=== PATIENT | female | born 1995 | race Caucasian/White ===

== ENCOUNTER 2021-11-22 09:49 | Outpatient (CLI) | payer OTHER | END 2021-11-22 09:50 | disposition home or self-care (01) | LOC: LAB.N 09:49 | PROVIDERS: ATTEND Nurse Practitioner Obstetrics & Gynecology | DX: O20.0 Threatened abortion (principal) | CPT/HCPCS: 36415; 84702 ==

== ENCOUNTER 2021-11-24 07:08 | Outpatient (CLI) | payer OTHER | END 2021-11-24 07:09 | disposition home or self-care (01) | LOC: LAB.N 07:08 | PROVIDERS: ATTEND Nurse Practitioner Obstetrics & Gynecology | DX: O20.0 Threatened abortion (principal) | CPT/HCPCS: 36415; 84702 ==

== ENCOUNTER 2022-03-16 13:00 | Outpatient (CLI) | payer OTHER | END 2022-03-16 13:01 | disposition home or self-care (01) | LOC: LAB 13:00 | PROVIDERS: ATTEND Nurse Practitioner Obstetrics & Gynecology | DX: Z32.01 Encounter for pregnancy test, result positive (principal) | CPT/HCPCS: 36415; 84702 ==

== ENCOUNTER 2022-03-18 15:46 | Outpatient (CLI) | payer OTHER | END 2022-03-18 15:47 | disposition home or self-care (01) | LOC: LAB 15:46 | PROVIDERS: ATTEND Nurse Practitioner Obstetrics & Gynecology | DX: Z32.01 Encounter for pregnancy test, result positive (principal) | CPT/HCPCS: 36415; 84702 ==

== ENCOUNTER 2022-04-23 09:27 | Outpatient (CLI) | payer OTHER ==
[2022-04-23 09:43] LABS: BASOPHILS % (AUTO) 0.6 %; EOSINOPHILS % (AUTO) 0.8 %; HCT - HEMATOCRIT 40.6 % (37.0-47.0); HGB - HEMOGLOBIN 13.8 g/dL (12.0-16.0); LYMPHOCYTES # (AUTO) 1.3 10^3/uL (1.5-3.5); LYMPHOCYTES % (AUTO) 24.9 %; MEAN CORPUSCULAR HEMOGLOBIN 29.3 pg (27.0-31.0); MEAN CORPUSCULAR VOLUME 86.2 fL (81.0-99.0); MEAN PLATELET VOLUME 9.4 fL (7.9-10.8); MONOCYTES # (AUTO) 0.6 10^3/uL (0.0-1.0); MONOCYTES % (AUTO) 11.2 %; NEUTROPHILS # (AUTO) 3.2 10^3/uL (1.5-6.6); NEUTROPHILS % (AUTO) 62.3 %; PLT - PLATELET COUNT 252 10^3/uL (130-450); RED BLOOD COUNT 4.71 10^6/uL (4.20-5.40); RED CELL DISTRIBUTION WIDTH 13.2 % (12.0-15.0); WHITE BLOOD COUNT 5.1 x10^3/uL (4.8-10.8)
[2022-04-24 05:11] LABS: HBsAG SCREEN Negative (Negative)
[2022-04-24 07:10] LABS: RPR Non Reactive (Non Reactive)
[2022-04-24 08:09] LABS: HCV AB Non Reactive (Non Reactive); HIV SCREEN 4TH GENERATION Non Reactive (Non Reactive); VARICELLA-ZOSTER AB IGG 2561 index (Immune >165)
== END 2022-04-23 09:28 | disposition home or self-care (01) ==
LOC: LAB 09:27
PROVIDERS: ATTEND Nurse Practitioner Obstetrics & Gynecology
DX: Z36.89 Encounter for other specified antenatal screening (principal)
CPT/HCPCS: 36415; 85025; 86592; 86762; 86787; 86803; 86850; 86900; 86901; 87340; 87389

== ENCOUNTER 2022-07-02 06:49 | Outpatient (CLI) | payer OTHER ==
--- NOTE | 2022-07-02 11:39 | Ultrasound Report ---
PROCEDURE: OB Detailed Eval INDICATIONS: SUPERVISION OF OUTSIDE/PRIOR DATING DATA: Last menstrual period (LMP): 02/14/2022. LMP-based estimated date of delivery (HERMAN): 11/21/2022. First dating scan (date and location): 04/17/2022. Estimated date of delivery (HERMAN) from first dating scan: 11/21/2022. TECHNIQUE: Real-time scanning was performed of the fetus, with image documentation and biometric measurements. Endovaginal scanning: Not performed COMPARISON: None. FINDINGS: General: A single living intrauterine gestation is present. Presentation: Breech Placenta: Placental position is posterior, without previa. Amniotic fluid index: 12.0 cm, 25th percentile for gestational age. heart rate: 135 beats per minute. Maternal cervical canal: 3.7 cm long; normal length is 2.5 cm or more. biometrics: Biparietal diameter: 4.28 cm, 19 weeks and 0 days Head circumference: 16.91 cm, 19 weeks and 4 days Abdominal circumference: 14.6 cm, 19 weeks and 6 days Femur length: 3.2 cm, 20 weeks and 0 days Estimated gestational age from initial scan: 19 weeks and 5 days. Composite gestational age from present scan: 19 weeks and 1 day Estimated weight and percentile: 317 g which correlates with the 54th percentile for gestation al age. Measurement variability in biometric dating: +/- 10 days from 12-20 weeks gestation, +/- 2 weeks from 20-30 weeks gestation, +/- 3 weeks at 30 weeks gestation or later. Anatomic survey: Neuro: Ventricles are normal at less than 10 mm. Cisterna magna is normal at 3-11 mm. Cerebellum i s normal in size and morphology. Nuchal skin fold: Normal at less than 6 mm between 14 and 20 weeks gestational age. Face: Nose and lips, facial profile are normal. Spine: No evidence for spina bifida. Heart: 4-chambered heart is present, with normal ventricular outflow tracts. Diaphragm: Diaphragm is intact. Stomach: Left-sided stomach is present. Kidneys: No hydronephrosis. Normal is less than 5 mm in 2nd trimester, less than 7 mm in 3rd trimester. Cord: 3 vessel cord has orthotopic insertion. Bladder: Normal in size. Extremities: All 4 extremities are visualized. IMPRESSION: Single living intrauterine gestation with estimated sonographic gestational age of approximately 19 w eeks and 1 day. Normal interval growth has occurred. Estimated weight of approximately 317 g which correlates with the 54th percentile for gestation al age. Otherwise, unremarkable routine second trimester anatomy screening survey. Reviewed by: Osbaldo Martinez MD on 07/02/2022 11:38 AM PDT Approved by: Osbaldo Martinez MD on 07/02/2022 11:38 AM PDT Station ID: [id number]
== END 2022-07-02 06:50 | disposition home or self-care (01) ==
LOC: DI 06:49
PROVIDERS: ATTEND Nurse Practitioner Obstetrics & Gynecology
DX: Z34.02 Encounter for supervision of normal first pregnancy, second trimester (principal); Z36.89 Encounter for other specified antenatal screening

== ENCOUNTER 2022-08-19 08:13 | Outpatient (CLI) | payer OTHER ==
[2022-08-19 09:26] LABS: HCT - HEMATOCRIT 35.9 % (37.0-47.0); HGB - HEMOGLOBIN 12.2 g/dL (12.0-16.0); MEAN CORPUSCULAR HEMOGLOBIN 29.8 pg (27.0-31.0); MEAN CORPUSCULAR VOLUME 87.6 fL (81.0-99.0); MEAN PLATELET VOLUME 9.7 fL (7.9-10.8); RED BLOOD COUNT 4.1 10^6/uL (4.20-5.40); RED CELL DISTRIBUTION WIDTH 12.7 % (12.0-15.0); WHITE BLOOD COUNT 8.6 x10^3/uL (4.8-10.8)
== END 2022-08-19 08:14 | disposition home or self-care (01) ==
LOC: LAB 08:13
PROVIDERS: ATTEND Nurse Practitioner Obstetrics & Gynecology
DX: Z36.9 Encounter for antenatal screening, unspecified (principal)
CPT/HCPCS: 36415; 82950; 85027

== ENCOUNTER 2022-09-25 19:17 | Outpatient (CLI) | payer OTHER ==
--- NOTE | 2022-09-26 01:03 | Ultrasound Report ---
PROCEDURE: OB F/U or Repeat INDICATIONS: IUGR OUTSIDE/PRIOR DATING DATA: Last menstrual period (LMP): 02/14/2022. LMP-based estimated date of delivery (HERMAN): 11/21/2022. First dating scan (date and location): 04/17/2022. Estimated date of delivery (HERMAN) from first dating scan: 11/21/2022. TECHNIQUE: Real-time scanning was performed of the fetus, with image documentation and biometric measurements. COMPARISON: 07/02/2022 FINDINGS: General: A single live intrauterine gestation is present. Presentation: Vertex Placenta: Placental position is posterior, without previa. Amniotic fluid index: 15.7 cm, within normal limits for gestational age. heart rate: 145 beats per minute. Maternal cervical canal: 4.4 cm long; normal length is 2.5 cm or more. biometrics: Biparietal diameter: 8.2 cm equals 33 weeks 0 days Head circumference: 31.3 cm equals 35 weeks 1 day Abdominal circumference: 27.6 cm equals 31 weeks 5 days Femur length: 6.2 cm equals 32 weeks 1 day Estimated gestational age from initial scan: 31 weeks 6 days Composite gestational age from present scan: 33 weeks 0 days Estimated weight and percentile: 1933 g, 52nd percentile Measurement variability in biometric dating: +/- 10 days from 12-20 weeks gestation, +/- 2 weeks from 20-30 weeks gestation, +/- 3 weeks at 30 weeks gestation or more. Other: Not applicable. IMPRESSION: Normal interval growth compared to the prior ultrasound examination. Reviewed by: Oscar Funez MD on 09/26/2022 12:01 AM DOR[facility] Approved by: Oscar Funez MD on 09/26/2022 12:01 AM DORIS Station ID: [id number]
== END 2022-09-25 19:18 | disposition home or self-care (01) ==
LOC: DI 19:17
PROVIDERS: ATTEND Nurse Practitioner Obstetrics & Gynecology
DX: O36.5930 Maternal care for other known or suspected poor fetal growth, third trimester, not applicable or unspecified (principal); Z3A.33 33 weeks gestation of pregnancy

== ENCOUNTER 2022-12-04 21:27 | Outpatient (CLI) | payer OTHER ==
--- NOTE | 2022-12-04 22:22 | Ultrasound Report ---
PROCEDURE: Duplex Ext Veins Right INDICATIONS: RIHGT CALF PAIN TECHNIQUE: Real-time imaging, as well as color and pulse Doppler interrogation, were performed of the lower extr emity deep veins from the inguinal ligament to the popliteal fossa. Attempted visualization of the ca lf veins was performed. COMPARISON: None. FINDINGS: The deep veins are normally compressible, and free of intraluminal thrombus. Color and pu lse Doppler demonstrate normal phasic intraluminal flow. There is normal augmentation response to di stal compression maneuver. IMPRESSION: No deep venous thrombosis of the visualized lower extremity. Reviewed by: Jonny Skinner MD on 12/04/2022 10:21 PM PDT Approved by: Jonny Skinner MD on 12/04/2022 10:21 PM PDT Station ID: [id number]
== END 2022-12-04 21:28 | disposition home or self-care (01) ==
LOC: DI 21:27
PROVIDERS: ATTEND Nurse Practitioner Obstetrics & Gynecology
DX: M79.604 Pain in right leg (principal)